=== PATIENT | female | born 1965 | race Caucasian/White ===

== ENCOUNTER 2020-11-28 08:57 | Emergency (ER) | payer BC, OTHER, SELFPAY ==
--- NOTE | 2020-11-28 08:57 | XR_ITS ---
WS: [id number] PORTABLE CHEST HISTORY: dyspnea/cough COMPARISON: None available. Dense consolidation in the LEFT upper lung field with adjacent pleural thickening. RIGHT lung is stewart r. There is slight atelectasis at the LEFT costophrenic angle. Cardiac size: Normal. Mediastinum/Aorta: Mild atherosclerosis aorta. No osseous abnormality seen. XR/XR chest 1V portable [id number] IMPRESSION: 1. LEFT upper lobe consolidation consistent with pneumonia. Recommend follow-u p radiograph after treatment to ensure resolution. 2. Minimal atelectasis at the LEFT costophrenic angle.
--- NOTE | 2020-11-28 08:58 | ECG_ITS ---
[facility] Test Date: 2020-11-28 Pat Name: Lisa Hammer Department: Room: Gender: Female Line Crewman: : 1965 Requested By: Henry Bentley Order Number: [id number] Reading MD: VANNESA WYNN Measurements Intervals [place] Rate: 87 P: 56 WV: 134 QRS: -31 QRSD: 94 T: 38 QT: 343 QTc: 414 Interpretive Statements SINUS RHYTHM MARKED LEFT AXIS DEVIATION [QRS AXIS < -30] INCOMPLETE RIGHT BUNDLE BRANCH BLOCK [90+ ms QRS DURATION, TERMINAL R IN V1/V2, 40+ ms S IN I/aVL/V4/V5/V6] No previous ECG available for comparison Electronically Signed On 11-28-2020 18:40:12 CDT by VANNESA WYNN [id number]
[2020-11-28 09:07] VITALS: BP 145/75; PULSE 91; RESP 18; TEMP 36.9; O2SAT 95; BMI 31.7
--- NOTE | 2020-11-28 09:26 | ED_ITS ---
HPI - Chest Pain General: Chief Complaint: Chest Pain Stated Complaint: CP Time Seen by Provider: 11/28/20 08:57 History of Present Illness: HPI narrative: 55-year-old female presents emergency room complaining chest pain started yesterday. Woke her up last ni ght. She has a family history her mother had early coronary artery disease she is very concerned about that she has no history of DVTs pain is reproduced with palpation across chest. When she was seen yesterday by her primary care she was found to have hematuria and was scheduled for a CT to evaluate today. Most of her pain is on the left flank prior to the test may be getting today. Does not radiate into her neck or arms. She does states worse when she takes a deep breath as well. MD complaint: chest pain Onset (ago): hour(s) Timing of current episode: constant Onset: during rest Pain location: left chest Pain radiation: back and left shoulder Severity: severe Quality: sharp Relieving factors: nothing Exacerbating factors: inspiration and palpation Context: recent illness Associated symptoms: Deny abdominal pain, diaphoresis, dyspnea, fever(s), leg edema, nausea, palpitations, sense of impending doom, syncope or vomiting Review of Systems Const: Denies: fever(s) or diaphoresis ENMT: Denies: throat pain, ear or mastoid pain, nasal discharge or nasal congestion Card: Denies: palpitations or syncope Resp: Denies: dyspnea GI: Denies: abdominal pain, nausea or vomiting : Denies: flank pain, difficulty voiding, dysuria, urinary frequency or urinary urgency Skin/Breast: Denies: rash or pruritus PFSH ED PFSH: Medical History Hypertension Family History Mother Heart attack Social History Smoking and tobacco status: never smoked Alcohol intake: never Physical Exam Const: COMMON NORMALS: no acute distress GENERAL APPEARANCE: cooperative and comfortable ORIENTATION/CONSCIOUSNESS: Yes awake, Yes oriented to person, Yes oriented to place and Yes oriented to time HENMT: COMMON NORMALS: normocephalic, atraumatic and hearing grossly normal bilaterally HEAD & SCALP: normocephalic and atraumatic Neck/C-Spine: COMMON NORMALS: no JVD Resp: COMMON NORMALS: normal respiratory effort, No retractions and No use of accessory muscles AUSCULTATION: rhonchi left upper Cardio: COMMON NORMALS: no JVD, regular rate, regular rhythm and No murmurs present (Cardio) RATE: regular rate RHYTHM: regular rhythm GI: COMMON NORMALS: Soft to palpation and No hepatosplenomegaly present AUSCULTATION: Yes normoactive bowel sounds PALPATION: Yes Soft to palpation, No Tenderness to palpation present (GI), No Guarding due to palpation present (GI) and Yes No hepatosplenomegaly present Extremity: COMMON NORMALS: normal to inspection, capillary refill normal, no clubbing, cyanosis or edema, no calf tenderness and no pedal edema Neuro: SENSORIUM/ORIENTATION: Yes oriented to person, Yes oriented to place and Yes oriented to time Skin: COMMON NORMALS: no rashes or lesions noted GENERAL SKIN EXAM: no jorge luis hes or lesions noted Course Vital Signs: Vital signs: Vital Signs Temperature 98.4 F 11/28/20 09:07 Pulse Rate 87 11/28/20 11:22 Respiratory Rate 16 11/28/20 11:22 Blood Pressure 142/71 11/28/20 11:22 Pulse Oximetry 99 11/28/20 11:22 MDM - Chest Pain MDM Narrative: Medical decision making narrative: Left upper lobe pneumonia confirmed on CT there is an elevated D-dimer but no PE white count is elevated but she tells me her white count was checked yesterday was also 20,000 range. She is maintaining her sats well. She does have quite a bit of blood in her urine on CT we got a little bit of the kidney she does not have a kidney stone like pain I suspect she may have little pyelonephritis based on some stranding worsening on the CT and her description of symptoms she had early on at this point I think she can continue with his the ciprofloxacin will add Zithromax and have her follow-up later this week with her primary care doctor additionally strongly encouraged her to use to follow-up in 4 to [address] of the chest as per recommendation of the radiologist based on the findings today. She has any worsening or change symptoms she should return. Lab Data: Labs: Lab Results 11/28/20 11/28/20 11/28/20 Range/Units 09:23 09:23 09:23 WBC 20.2 H (4.0-10.0) 10^3/ uL RBC 4.18 (4.1-5.3) 10^6/u L Hgb 11.5 (11.5-15.3) g/dL Hct 35.1 L (37.0-47.0) % MCV 84.0 (81-99) fL MCH 27.5 L (28.0-34.0) pg MCHC 32.8 (30.0-36.0) g/dL RDW 14.3 (12.1-15.1) % Plt Count 420 H (130-400) 10^3/c mm MPV 9.5 (7.4-10.4) fL Neut % (Auto) 84.8 % Lymph % (Auto) 7.4 % [place] % (Auto) 6.9 % Eos % (Auto) 0.1 % Baso % (Auto) 0.3 % Neut # (Auto) 17.11 H (1.8-7.7) 10^3/u L Lymph # (Auto) 1.5 (0.8-4.8) 10^3/u L [place] # (Auto) 1.4 H (0.2-0.9) 10^3/u L Eos # (Auto) 0.0 (0.0-0.8) 10^3/u L Baso # (Auto) 0.1 (0.0-0.1) 10^3/u L Nucleated RBC % (a uto) 0 % Nucleated RBCs # 0.0 /100WBC D-Dimer (0-0.59) ug/mIFE U Sodium 131 L (136-145) mmol/L Potassium 3.5 (3.5-5.1) mmol/L Chloride 99 (98-107) mmol/L Carbon Dioxide 18 L (22-29) mmol/L Anion Gap 17.5 (5-19) BUN 11 (6-20) mg/dL Creatinine 0.8 (0.5-0.9) mg/dL GFR Calculation 74.2 L (90-130) mL/min Glucose 114 (65-115) mg/dL Calculated Osmolal ity 272 L (285-295) mOsm/k g Calcium 8.7 (8.5-10.5) mg/dL Total Bilirubin 0.3 (0.15-1.2) mg/dL AST 17 (0-32) U/L ALT 15 (0-33) U/L Alkaline Phosphata se 89 (35-105) IU/L Troponin T Baselin e 31 H (0-10) ng/L Total Protein 7.4 (6.6-8.7) g/dL Albumin 3.8 (3.5-5.2) g/dL Globulin 3.6 (1.3-4.6) g/dL Urine Color (Yellow) Urine Appearance (CLEAR) Urine pH (5-7) Ur Specific Gravit y (1.005-1.030) Urine Protein (Negative) Urine Glucose (UA) (Normal) Urine Ketones (Negative) Urine Blood (Negative) Urine Nitrate (Negative) Urine Bilirubin (Negative) Urine Urobilinogen (Negative) mg/dL Ur Leukocyte Staci ase (Negative) Urine RBC (0-2) /hpf Urine WBC (0-5) /hpf Ur Squamous Epith Cells (0-5) /hpf Amorphous Sediment Urine Bacteria (NONE) /hpf Urine Mucus /hpf 11/28/20 11/28/20 Range/Units 09:28 10:13 WBC (4.0-10.0) 10^3/ uL RBC (4.1-5.3) 10^6/u L Hgb (11.5-15.3) g/dL Hct (37.0-47.0) % MCV (81-99) fL MCH (28.0-34.0) pg MCHC (30.0-36.0) g/dL RDW (12.1-15.1) % Plt Count (130-400) 10^3/c mm MPV (7.4-10.4) fL Neut % (Auto) % Lymph % (Auto) % [place] % (Auto) % Eos % (Auto) % Baso % (Auto) % Neut # (Auto) (1.8-7.7) 10^3/u L Lymph # (Auto) (0.8-4.8) 10^3/u L [place] # (Auto) (0.2-0.9) 10^3/u L Eos # (Auto) (0.0-0.8) 10^3/u L Baso # (Auto) (0.0-0.1) 10^3/u L Nucleated RBC % (a uto) % Nucleated RBCs # /100WBC D-Dimer 3.25 H (0-0.59) ug/mIFE U Sodium (136-145) mmol/L Potassium (3.5-5.1) mmol/L Chloride (98-107) mmol/L Carbon Dioxide (22-29) mmol/L Anion Gap (5-19) BUN (6-20) mg/dL Creatinine (0.5-0.9) mg/dL GFR Calculation (90-130) mL/min Glucose (65-115) mg/dL Calculated Osmolal ity (285-295) mOsm/k g Calcium (8.5-10.5) mg/dL Total Bilirubin (0.15-1.2) mg/dL AST (0-32) U/L ALT (0-33) U/L Alkaline Phosphata se (35-105) IU/L Troponin T Baselin e (0-10) ng/L Total Protein (6.6-8.7) g/dL Albumin (3.5-5.2) g/dL Globulin (1.3-4.6) g/dL Urine Color Yellow (Yellow) Urine Appearance Clear (CLEAR) Urine pH 7 (5-7) Ur Specific Gravit y 1.010 (1.005-1.030) Urine Protein 1+ H (Negative) Urine Glucose (UA) Norm (Normal) Urine Ketones 2+ H (Negative) Urine Blood 3+ H (Negative) Urine Nitrate Negative (Negative) Urine Bilirubin 1+ H (Negative) Urine Urobilinogen 8 H (Negative) mg/dL Ur Leukocyte Staci ase Negative (Negative) Urine RBC >100 H (0-2) /hpf Urine WBC None (0-5) /hpf Ur Squamous Epith Cells 10-15 H (0-5) /hpf Amorphous Sediment Not Reportable Urine Bacteria 1+ H (NONE) /hpf Urine Mucus Trace /hpf Discharge Plan Discharge Patient Disposition: Home Clinical Impression: Pneumonia, Pyelonephritis Condition: Stable Prescriptions: New Zithromax Z-Ty 250 mg tablet See Rx Instructions .ROUTE .COMPLEX Qty: 6 RF: 0 hydrocodone-acetaminophen 5-325 mg tablet 1 tab PO Q6H PRN (Reason: pain) Qty: 12 RF: 0 No Action escitalopram oxalate 10 mg tablet 10 mg PO QAM RF: 0 losartan 100 mg tablet 100 mg PO QAM RF: 0 vitamin E 200 unit capsule 400 unit PO QAM RF: 0 aspirin 81 mg tablet,delayed release (DR/EC) 81 mg PO QAM RF: 0 multivitamin Tablet 1 tab PO DAILY RF: 0 Vitamin B-12 1,000 mcg Tablet Extended Release 1,000 mcg PO QAM RF: 0 ondansetron HCl 4 mg tablet 4 mg PO QID PRN (Reason: Nausea And Vomiting) RF: 0 fexofenadine 180 mg Tablet 180 mg PO QAM RF: 0 ciprofloxacin HCl 500 mg tablet 500 mg PO BID RF: 0 Synthroid 112 mcg tablet 112 mcg PO QAM RF: 0 Vitamin D3 125 mcg (5,000 unit) Tablet 125 mcg PO DAILY RF: 0 cranberry 1 tab PO QAM RF: 0 Discharge Orders: Discharge ED (Routine); Ordered 11/28/20 Ordered By: Henry Issa Discharge Diet: Usual diet Discharge Activity: Increase activity as tolerated Patient Instructions: Opioid Safety Activity Restrictions/Additional Instructions: Recommend you follow-up with your primary care doctor in the next 2 to 3 days prior to the weekend to reevaluate. Start the second antibiotic you were given today, continue the antibiotic given to you by your primary care provider yesterday. It is very important that you have a follow-up CT in approximately 4 to 6 weeks. This can be arranged through your primary care provider. Coding Level of Care Code ED Dry Plasterer for Anson Monzon
[2020-11-28 09:29] LABS: Basophils # 0.1 10^3/uL (0.0-0.1); Basophils % 0.3 %; Eosinophils % 0.1 %; Hematocrit 35.1 % (37.0-47.0); Hemoglobin 11.5 g/dL (11.5-15.3); Lymphocytes # 1.5 10^3/uL (0.8-4.8); Lymphocytes % 7.4 %; Mean Corpuscular HGB Conc 32.8 g/dL (30.0-36.0); Mean Corpuscular Hemoglobin 27.5 pg (28.0-34.0); Mean Platelet Volume 9.5 fL (7.4-10.4); Monocytes # 1.4 10^3/uL (0.2-0.9); Monocytes % 6.9 %; Neutrophils # 17.11 10^3/uL (1.8-7.7); Neutrophils % 84.8 %; Nucleated Red Blood Cells % 0 %; Platelet Count 420 10^3/cmm (130-400); Red Blood Count 4.18 10^6/uL (4.1-5.3); Red Cell Distribution Width 14.3 % (12.1-15.1); White Blood Count 20.2 10^3/uL (4.0-10.0)
[2020-11-28 09:50] LABS: Alanine Aminotransferase 15 U/L (0-33); Albumin Level 3.8 g/dL (3.5-5.2); Alkaline Phosphatase 89 IU/L (35-105); Anion Gap 17.5 (5-19); Aspartate Amino Transferase 17 U/L (0-32); Blood Urea Nitrogen 11 mg/dL (6-20); Calcium 8.7 mg/dL (8.5-10.5); Carbon Dioxide 18 mmol/L (22-29); Chloride 99 mmol/L (98-107); Globulin 3.6 g/dL (1.3-4.6); Glomerular Filtration Rate 74.2 mL/min (90-130); Glucose 114 mg/dL (65-115); Osmolality Calculated 272 mOsm/kg (285-295); Potassium 3.5 mmol/L (3.5-5.1); Sodium 131 mmol/L (136-145); Total Bilirubin 0.3 mg/dL (0.15-1.2); Total Protein 7.4 g/dL (6.6-8.7); Troponin(5th) Baseline 31 ng/L (0-10)
[2020-11-28 09:55] LABS: D Dimer 3.25 ug/mIFEU (0-0.59)
--- NOTE | 2020-11-28 09:57 | CT_ITS ---
WS: [id number] CT CHEST ANGIOGRAPHY WITH REFORMATS HISTORY: elevated d dimer TECHNIQUE: Contiguous axial images are obtained through the chest during arterial injection of intrav enous contrast. Images are reconstructed to evaluate the pulmonary arteries. MIP imaging also reviewe d. All CT scans at [facility] use at least one of these dose optimization techniques: aut omated exposure control; mA and/or kV adjustment per patient size (includes targeted exams where dose is matched to clinical indication); or iterative reconstruction. CONTRAST: Omnipaque 350; 95 mL IV. DLP: 527.12 mGy.cm COMPARISON: None available. Good opacification of the pulmonary arteries. No pulmonary embolism. Mild enlargement of the pulmonar y artery. Mild atherosclerosis aorta with no aneurysm. Mild enlargement of the LEFT heart chambers. N o RIGHT heart strain. Dense area of consolidation in the LEFT upper lobe abuts the superior fissure. This consolidation mariela sures 6.8 x 6.0 cm. Adjacent changes of pneumonitis. Subsolid nodule abuts the pleura in the RIGHT mi ddle lobe, image 32 of series 3 measuring 4 mm. Small LEFT pleural effusion. Numerous but small bilateral axillary lymph nodes measuring up to 9 mm. There are numerous mediastina l and hilar lymph nodes. Perirectal lymph node measures 10 mm in short axis diameter. There are numer ous lymph nodes extending along the pulmonary artery to the LEFT hilum. Lymph nodes have maximum diam eter of 8 mm. Subcarinal lymph node with a maximum diameter of 14 mm. Bilateral hilar lymph nodes mariela suring up to 15 mm. Early arterial enhancement of the liver is negative for visualized mass. Gallbladder surgically remov ed. No adrenal mass. Mild perinephric stranding around the superior pole of the LEFT kidney. Low-atte nuation of the pancreatic head without enlargement. Lesions in the pancreas, liver and kidneys would be difficult to visualize due to the early phase enhancement. There are a few subcentimeter lymph nod es near the celiac axis. 7 mm distal esophageal lymph node. Stranding and mild inflammatory changes i n the mediastinal fat. Small hiatal hernia. No osteoblastic or osteolytic bone disease. CT/CT angio chest PE protcl [id number] IMPRESSION: 1. No pulmonary embolism. 2. Large area of consolidation in the LEFT upper lobe extending along the fiss ure. Differential includes pneumonia and neoplasm. Recommend short-term follow- up after treatment for pneumonia. Recommend follow-up chest and abdomen CT with IV contrast in 2-3 weeks. 3. Small LEFT pleural effusion. 4. There are numerous axillary, mediastinal and hilar lymph nodes which may al l be reactive. 5. Mild stranding around the upper pole the LEFT kidney. Correlate for possibl e urinary tract infection. 6. There is an additional area slight change in density in the pancreatic head although no enlargement. Recommend follow-up evaluation through the abdomen to include the pancreas and LEFT kidney on the CT to be obtained in 2-3 weeks.
[2020-11-28 10:11] VITALS: RESP 18
[2020-11-28] MEDS: morphine 4 mg/mL SDV 1 mL IVP (10:11)
[2020-11-28] MEDS: iohexol 350 mg/mL 100 mL Btl IV (10:23)
[2020-11-28 10:40] LABS: Urine Appearance Clear (CLEAR); Urine Color Yellow (Yellow); pH Urine 7 (5-7)
[2020-11-28 10:41] LABS: Add Urine Culture? No; Add Urine Microscopic? YES; Bacteria Urine 1+ /hpf; Bilirubin Urine 1+ (Negative); Blood Urine 3+ (Negative); Glucose Urine UA Norm (Normal); Ketones Urine 2+ (Negative); Leukocyte Esterase Urine Negative (Negative); Mucus Urine TRACE /hpf; Nitrate Urine Negative (Negative); Protein Urine 1+ (Negative); RBC Urine >100 /hpf (0-2); Urobilinogen Urine 8 mg/dL (Negative)
[2020-11-28 11:22] VITALS: BP 142/71; PULSE 87; RESP 16; O2SAT 99
== END 2020-11-28 11:24 | disposition home or self-care (01) ==
PROVIDERS: Emergency Provider Family Medicine
DX: J18.9 Pneumonia, unspecified organism (principal); N12 Tubulo-interstitial nephritis, not specified as acute or chronic; Z79.82 Long term (current) use of aspirin; I10 Essential (primary) hypertension
CPT/HCPCS: 71045; 71275; 80053; 81001; 84484; 85025; 85378; 93005; 96374; 99284; J2270; Q9967

== ENCOUNTER 2020-12-01 07:48 | Outpatient (CLI) | payer OTHER, BC, SELFPAY ==
--- NOTE | 2020-12-01 | CT_ITS ---
WS: [id number] CT ABDOMEN PELVIS TECHNIQUE: Noncontrast CT of the abdomen and pelvis with coronal and sagittal reformatted images. CLINICAL INFORMATION: HEMATURIA COMPARISON: CTA November 28, 2020 DLP: [address] scans at [facility] use at least one of these dose optimization techniques: automat ed exposure control; mA and/or kV adjustment per patient size (includes targeted exams where dose is matched to clinical indication); or iterative reconstruction. FINDINGS: Small left pleural effusion. Slight right basilar atelectasis. Subsegmental atelectasis in the lingul a and left lower lobe. Pleural effusion is similar in appearance to the recent CT. Noncontrast liver is normal. Small esophageal hiatal hernia. Cholecystectomy clips. Noncontrast splee n is normal. Adrenal glands are normal. Heterogeneous attenuation pancreatic head with slight fullnes s is similar in appearance to the recent CT. This is not well evaluated on this noncontrast CT and re commend further evaluation with contrast-enhanced CT abdomen pelvis or MRI pancreas. Small fatty lesion right renal parenchyma consistent with renal angiomyolipoma measuring 6.9 mm. Righ t lower pole exophytic renal lesion with increased attenuation measuring 1.6 cm is not definitely cys tic and recommend further evaluation with renal ultrasound. Perinephric stranding and edema about the left kidney. This is similar in appearance [address] No hydronephrosis. No obstructing left renal or ureteral calculi. Shotty lymph nodes in the upper abdomen. Shotty periaortic and retroperitoneal lymph nodes. Largest l ymph node measures 8 mm along the left retroperitoneum. These are nonspecific but most likely reactiv e. Sigmoid diverticulosis. No evidence of acute diverticulitis. No evidence of small or large bowel obstruction. Disc space narrowing worse at L3-4. CT/CT kidney stone [id number] IMPRESSION: 1. Lobulated kidney left upper pole with perinephric inflammatory stranding ca n be seen with renal insufficiency. No obstructing renal or ureteral calculi. N o hydronephrosis in either kidney. 2. Nonspecific exophytic increased attenuation lesion lower pole right kidney measuring 1.6 cm not definitely cystic. Recommend further evaluation with renal ultrasound. 3. Heterogeneous fullness in the pancreatic head unchanged from the CTA chest. No discrete lesions visualized although not well evaluated on this noncontrast study. Recommend further evaluation with contrast-enhanced CT abdomen pelvis o r MRI of the pancreas without and with gadolinium enhancement to exclude underl talha lesion. 4. Stable small left pleural effusion. 5. Small esophageal hiatal hernia.
== END 2020-12-01 07:49 | disposition home or self-care (01) ==
PROVIDERS: PCP Physician Assistant; Visit Provider Physician Assistant
DX: R31.9 Hematuria, unspecified (principal); K44.9 Diaphragmatic hernia without obstruction or gangrene; J90 Pleural effusion, not elsewhere classified
CPT/HCPCS: 74176

== ENCOUNTER 2020-12-04 10:15 | Outpatient (CLI) | payer OTHER, SELFPAY ==
[2020-12-04 11:03] LABS: Add Urine Microscopic? YES; Bilirubin Urine Neg (Negative); Blood Urine 2+ (Negative); Glucose Urine UA Norm (Normal); Ketones Urine Negative (Negative); Leukocyte Esterase Urine Negative (Negative); Nitrate Urine Negative (Negative); Protein Urine Neg (Negative); Urine Appearance SL Hazy (CLEAR); Urine Color Yellow (Yellow); Urobilinogen Urine Norm (Negative); pH Urine 6 (5-7)
[2020-12-04 11:04] LABS: Bacteria Urine 2+ /hpf; Mucus Urine 1+ /hpf; Squamous Epithelial Cell Urine 15-25 /hpf (0-5); WBC Urine 0-4 /hpf (0-5)
[2020-12-04 11:06] LABS: Add Urine Culture? No; Hyaline Casts Urine RARE /lpf
[2020-12-04 11:07] LABS: Urine Creatinine 269 mg/dL (28-217)
[2020-12-04 11:09] LABS: Urine Protein Random 41 mg/dL
== END 2020-12-04 10:16 | disposition home or self-care (01) ==
PROVIDERS: PCP Physician Assistant; Visit Provider Internal Medicine Pulmonary Disease
DX: R80.9 Proteinuria, unspecified (principal)
CPT/HCPCS: 81001; 82570; 84156

== ENCOUNTER 2020-12-28 07:57 | Outpatient (CLI) | payer OTHER, SELFPAY ==
--- NOTE | 2020-12-28 08:07 | CTR_ITS ---
PROCEDURE INFORMATION: Exam: CT Chest With Contrast; Diagnostic Exam date and time: 12/28/2020 8:07 AM Age: 55 years old Clinical indication: Condition or disease; Other: Lung consolidation, hematuria; Lung condition and disease; Pneumonia; Prior surgery; Surgery type: Gb TECHNIQUE: Imaging protocol: Diagnostic computed tomography of the chest with contrast. Radiation optimization: All CT scans at this facility use at least one of these dose optimization techniques: automated exposure control; mA and/or kV adjustment per patient size (includes targeted exams where dose is matched to clinical indication); or iterative reconstruction. Contrast material: OMNI 300; Contrast volume: 95 ml; Contrast route: INTRAVENOUS (IV); COMPARISON: CT angio chest PE protcl [id number] 11/28/2020 10:13 AM RADIATION DOSE METRICS: Total DLP (mGy-cm): 2108.78 FINDINGS: Lungs: No consolidation. Pleural spaces: There is a small left pleural effusion with adjacent atelectasis. Heart: Unremarkable. No cardiomegaly. No pericardial effusion. Mediastinal space: A small hiatal hernia is present. Aorta: Unremarkable. No aortic aneurysm. Lymph nodes: Interval decrease in size of mediastinal lymph nodes, the largest in the subcarinal region measuring 1.6 cm (previously 1.7 cm). Unchanged small bilateral axillary lymph nodes, the largest on the left measuring 0.9 cm in transverse dimension. Bones/joints: Degenerative changes of the spine seen. Soft tissues: Unremarkable. IMPRESSION: 1. Small left pleural effusion with adjacent atelectasis. 2. Interval decrease in size of mediastinal lymph nodes. PROCEDURE INFORMATION: Exam: CT Abdomen With Contrast Exam date and time: 12/28/2020 8:07 AM Age: 55 years old Clinical indication: Condition or disease; Other: Lung consolidation, hematuria; Lung condition and disease; Pneumonia; Prior surgery; Surgery type: Gb TECHNIQUE: Imaging protocol: Computed tomography images of the abdomen with intravenous contrast. Radiation optimization: All CT scans at this facility use at least one of these dose optimization techniques: automated exposure control; mA and/or kV adjustment per patient size (includes targeted exams where dose is matched to clinical indication); or iterative reconstruction. Contrast material: OMNI 300; Contrast volume: 95 ml; Contrast route: INTRAVENOUS (IV); COMPARISON: CT angio chest PE protcl [id number] 11/28/2020 10:13 AM RADIATION DOSE METRICS: Total DLP (mGy-cm): 2108.78 FINDINGS: Liver: Normal. No mass. Gallbladder and bile ducts: The gallbladder has been surgically removed. Pancreas: Normal. No ductal dilation. Spleen: Normal. No splenomegaly. Adrenals: Normal. No mass. Kidneys and ureters: Symmetric enhancement of the kidneys. A complex hyperdense cyst measuring 1.9 cm is again seen in the right lower kidney, likely containing proteinaceous/hemorrhagic products. Unchanged angiomyolipoma in the right mid kidney measuring 1.1 cm. No hydronephrosis or nephrolithiasis. Stomach and bowel: Visualized stomach and bowel are unremarkable. No obstruction. No mucosal thickening. Intraperitoneal space: Unremarkable. No free air. No significant fluid collection. Lymph nodes: Small retroperitoneal lymph nodes noted, the largest measuring 1.0 cm in transverse dimension on the left. Vasculature: Unremarkable. No abdominal aortic aneurysm. Bones/joints: Degenerative changes of the spine seen. Soft tissues: Unremarkable. CT/CT chest abdomen w con* IMPRESSION: Small right kidney angiomyolipoma. No nephrolithiasis. COMMENTS: Consistent with the [employer]'s Incidental Findings Committee white paper (J Am [place] Radiol 2018): Any incidental renal lesion less than 1 cm or classified as too small to characterize, or any incidental cystic renal lesion characterized as simple-appearing, is likely benign. No follow-up imaging is recommended for these lesions per consensus recommendations based on imaging criteria. Radiation Dose CTDIVOL = (mGy): DLP = 2108.78~2108.78 (mGy-cm)
[2020-12-28] MEDS: iohexol 300 mg/mL 50 mL Btl PO (08:47)
[2020-12-28] MEDS: iohexol 300 mg/mL 100 mL Btl IV (09:02)
== END 2020-12-28 07:58 | disposition home or self-care (01) ==
LOC: RADWPI 08:00
PROVIDERS: PCP Physician Assistant; Visit Provider Physician Assistant
DX: J18.1 Lobar pneumonia, unspecified organism (principal); J90 Pleural effusion, not elsewhere classified; D17.71 Benign lipomatous neoplasm of kidney
CPT/HCPCS: 71260; 74160; Q9967

== ENCOUNTER 2021-01-23 09:51 | Outpatient (CLI) | payer OTHER, SELFPAY ==
[2021-01-23 10:10] VITALS: BP 150/89; PULSE 85; RESP 16; TEMP 36.8; O2SAT 97; BMI 31.9
[2021-01-23 10:35] VITALS: BP 149/85; PULSE 82; RESP 18; O2SAT 94
[2021-01-23 11:32] VITALS: BP 150/81; PULSE 76; RESP 16; TEMP 37; O2SAT 97
--- NOTE | 2021-02-02 11:21 | DCPLANNER ---
industrial sales manager had message that patient received the monoclonal antibody infusion. industrial sales manager called and spoke with patient. She stated that before the infusion, she had a headache, she had diarrhea. Patient stated that she did not run a fever, she did have a slight cough. Patient stated that after the infusion, she feels fantastic. Patient stated that she had a little bit of a fever after the infusion, but has really not had any symptoms, she is feeling great.
== END 2021-01-23 09:52 | disposition home or self-care (01) ==
LOC: OPS 09:54
PROVIDERS: PCP Physician Assistant; Visit Provider Nurse Practitioner
DX: U07.1 COVID-19 (principal)
CPT/HCPCS: 96365

== ENCOUNTER → 2021-02-26 10:31 | Outpatient (BNVA) | payer OTHER, SELFPAY | PROVIDERS: PCP Physician Assistant; Visit Provider Internal Medicine Rheumatology | DX: R76.8 Other specified abnormal immunological findings in serum (principal); Z87.891 Personal history of nicotine dependence; Z71.89 Other specified counseling | CPT/HCPCS: 99203 ==

== ENCOUNTER 2021-03-08 10:15 | Outpatient (CLI) | payer OTHER, SELFPAY ==
--- NOTE | 2021-03-08 10:19 | MM_ITS ---
WS: [id number] BILATERAL DIGITAL SCREENING MAMMOGRAPHY WITH CAD CLINICAL INFORMATION: SCREENING HISTORY: Screening mammogram. No current complaints. COMPARISON: None. TECHNIQUE: Bilateral CC and MLO views. FINDINGS: The breasts are composed of heterogeneous fibroglandular density tissue, which can limit the detectio n of small underlying mass lesions. Punctate and lucent centered calcifications. No suspicious mass, asymmetry, calcifications, or architectural distortion. No evidence of malignancy. MM/[place] [id number] IMPRESSION: BI-RADS: 2-Benign FOLLOW UP: 1 Year Follow-up Recommend return to annual screening mammography.
== END 2021-03-08 10:16 | disposition home or self-care (01) ==
LOC: RADSHAW 10:18
PROVIDERS: PCP Physician Assistant; Visit Provider Physician Assistant
DX: Z12.31 Encounter for screening mammogram for malignant neoplasm of breast (principal)
CPT/HCPCS: 77067

== ENCOUNTER 2022-03-27 13:38 | Outpatient (CLI) | payer MEDICAID, SELFPAY ==
--- NOTE | 2022-03-27 13:53 | MM_ITS ---
WS: [id number] Bilateral screening 3D tomosynthesis digital mammogram, 03/27/2022 Clinical Data: SCREEN Comparison: 03/08/2021. Findings: The breast parenchymal pattern shows heterogeneous density. No spiculated masses or clustered calcifi cations are seen. There are no secondary signs of carcinoma. Mole markers are on both breasts. There are numerous left axillary lymph nodes. MM/[id number] Impression: 1. Negative bilateral mammogram unchanged. 2. Recommend annual screening mammograms. BIRADS: 1-Negative FOLLOW UP: 1 Year Follow-up The CAD fish checker was used.
== END 2022-03-27 13:39 | disposition home or self-care (01) ==
LOC: RAD 13:38
PROVIDERS: PCP Physician Assistant; Visit Provider Physician Assistant
DX: Z12.31 Encounter for screening mammogram for malignant neoplasm of breast (principal)
CPT/HCPCS: 77063; 77067

== ENCOUNTER 2022-04-14 06:53 | Emergency (ER) | payer MEDICAID, SELFPAY ==
[2022-04-14] VITALS (7 sets, daily range): BP systolic 124–139; BP diastolic 78–85; PULSE 76–82; RESP 12–18; O2SAT 95–99; BMI 31.6
--- NOTE | 2022-04-14 06:58 | ECG_ITS ---
[facility] Test Date: 2022-04-14 Pat Name: Lisa Hammer Department: Room: Gender: Female Medication Assistant: : 1965 Requested By: Kory Thorne Order Number: [id number] Rosa MD: Nessa Goodwin M.D. Measurements Intervals [place] Rate: 82 P: 47 HI: 139 QRS: -18 QRSD: 91 T: 4 QT: 375 QTc: 438 Interpretive Statements SINUS RHYTHM Compared to ECG 11/28/2020 09:14:34 Left-axis deviation no longer present Incomplete right bundle-branch block no longer present Electronically Signed On 04-14-2022 9:42:15 GREIGE GOODS MARKER by Nessa Goodwin M.D. [email or web address] [email or web address] [email or web address]/[id number] f
--- NOTE | 2022-04-14 06:58 | XRR_ITS ---
PROCEDURE INFORMATION: Exam: XR Chest Exam date and time: 04/14/2022 8:34 AM Age: 56 years old Clinical indication: Chest pain/pressure. TECHNIQUE: Imaging protocol: Radiologic exam of the chest. Views: 1 view. COMPARISON: CT chest abdomen w con* 12/28/2020 8:59 AM FINDINGS: Lungs: Ovoid opacity at the left base measuring 4.5 x 2.1 cm. This could reflect a mass or consolidation. There is mild patchy adjacent opacity. Pleural spaces: No pleural effusion. No pneumothorax. Heart/Mediastinum: The cardiac silhouette is approximately unchanged. No gross evidence of pneumomediastinum. Bones/joints: No gross fracture. XR/XR chest 1V portable [id number] IMPRESSION: Large ovoid opacity at the left base that could reflect a mass or consolidation. There is mild patchy adjacent opacity. Recommend CT chest with contrast to further assess.
--- NOTE | 2022-04-14 07:00 | W.ED.CHESTPA ---
HPI - Chest Pain General: Chief Complaint: Chest Pain Stated Complaint: CHEST PAIN Time Seen by Provider: 04/14/22 06:58 History of Present Illness: 56-year-old female presents with some mid left-sided chest pain that awoke her from sleep around 430 this morning. She reports that the pain went to her left arm and she had some tingling and the pain radiated up into her jaw. She felt like she had a hard time catching her breath. She reports no previous cardiac history but does report a strong family history of cardiac problems. Patient called EMS around 15-12 06. EMS reports that she was placed on oxygen got some mild improvement. Then she was then given aspirin 3 nitros with minimal improvement. Patient received 100 fentanyl and pain is down no A1. She reports that she felt like she had a hard time taking her catching her breath. She denies any pain on inspiration, she denies fever, chills, cough. Associated symptoms: Reports dyspnea; Deny abdominal pain, fever(s), nausea, palpitations, syncope or vomiting Review of Systems Const: Reports: fatigue and malaise; Denies: fever(s) or chills Eyes: Denies: change in vision, blurry vision or eye discharge ENMT: Denies: throat pain or tinnitus Card: Reports: chest pain; Denies: palpitations, swelling of feet/ankles, lightheadedness or syncope Resp: Reports: dyspnea; Denies: productive cough, wheezing or pain on inspiration GI: Denies: abdominal pain, nausea, vomiting or diarrhea : Denies: flank pain or difficulty voiding Musc: Reports: neck pain and extremity pain Skin/Breast: Denies: rash or erythema Neuro: Denies: headache(s) or dizziness Psych: Denies: anxiety or depression PFS ED PFSH: Medical History Hypertension Family History Mother Heart attack Social History Smoking and tobacco status: former smoker Quit status (tobacco): has quit using tobacco Year quit tobacco: 2016 <[id number] Second hand smoke exposure: No Smoking risk assessment/counseling performed?: Yes Alcohol intake: never Lives independently: Yes Household members: none Marital status: / service: No Current occupational status: employed Pets and animals: No History of recent travel: No Current gender identity: Female Physical Exam Const: COMMON NORMALS: no acute distress, average body habitus, patient oriented x3 and alert HENMT: COMMON NORMALS: hearing grossly normal bilaterally and moist oral mucous membranes Eye: COMMON NORMALS: Equal, round and reactive pupils present and EOMs intact bilaterally PUPIL: Yes Equal, round and reactive pupils present Resp: COMMON NORMALS: normal respiratory effort, No retractions, No use of accessory muscles and clear to auscultation bilaterally AUSCULTATION: clear to auscultation bilaterally Cardio: COMMON NORMALS: regular rate and regular rhythm RATE: regular rate RHYTHM: regular rhythm GI: COMMON NORMALS: Normal to inspection, nondistended, normoactive bowel sounds present, Soft to palpation and non-tender PALPATION: Yes Soft to palpation : COMMON NORMALS: Yes no CVA tenderness BLADDER/KIDNEY EXAM: Yes no CVA tenderness Back/Pelvis: COMMON NORMALS: no CVA tenderness Extremity: COMMON NORMALS: normal to inspection, full ROM and capillary refill normal Neuro: COMMON NORMALS: patient oriented x3, moves all extremities, no focal motor deficits and no sensory deficits noted SENSORIUM/ORIENTATION: Yes alert Psych: COMMON NORMALS: mental status grossly normal, Normal thought process present, cooperative and normal affect THOUGHT PROCESS: Normal thought process present Skin: COMMON NORMALS: no rashes or lesions noted and no wounds GENERAL SKIN EXAM: no rashes or lesions noted Course Vital Signs: Vital signs: Vital Signs Pulse Rate 76 04/14/22 10:25 Respiratory Rate 14 04/14/22 10:00 Blood Pressure 124/78 04/14/22 10:25 Pulse Oximetry 97 04/14/22 10:25 Oxygen Delivery Me thod 04/14/22 06:57 MDM - Chest Pain Medical Decision Making Patient's symptoms likely due to infectious bronchitis with some chronic underlying respiratory disease. Patient to be treated with antibiotic, steroid. Recommend that she use ibuprofen for discomfort. She follows up with her primary care provider in a couple days for recheck of her symptoms. Patient stable and discharged home Lab Data : 04/14/22 07:16 04/14/22 07:16 Radiology Impressions Chest X-Ray 04/14/22 06:58 IMPRESSION: Large ovoid opacity at the left base that could reflect a mass or consolidation. There is mild patchy adjacent opacity. Recommend CT chest with contrast to further assess. Chest CTA 04/14/22 07:56 IMPRESSION: 1. No pulmonary embolus. 2. Peribronchial wall thickening; query viral infection/bronchitis, chronic bronchitis and/or asthma. 3. Solid pulmonary nodules are unchanged measuring up to 5.7 mm. Fleischner society guidelines have been satisfied. No further follow-up is required. 4. Approximately unchanged mediastinal, bilateral hilar and periportal lymphadenopathy. 5. Worsening bilateral axillary lymphadenopathy. 6. Small hiatal hernia. 7. Colonic diverticulosis. Laboratory Results WBC 12.5 10^3/uL (4.0-10.0) H 04/14/22 07:16 RBC 4.13 10^6/uL (4.1-5.3) 04/14/22 07:16 Hgb 11.1 g/dL (11.5-15.3) L 04/14/22 07:16 Hct 34.6 % (37.0-47.0) L 04/14/22 07:16 MCV 83.8 fl (81-99) 04/14/22 07:16 MCH 26.9 pg (28.0-34.0) L 04/14/22 07:16 MCHC 32.1 g/dL (30.0-36.0) 04/14/22 07:16 RDW 15.3 % (12.1-15.1) H 04/14/22 07:16 Plt Count 420 10^3/cmm (130-400) H 04/14/22 07:16 MPV 9.8 fL (7.4-10.4) 04/14/22 07:16 Neut % (Auto) 73.6 % 04/14/22 07:16 Lymph % (Auto) 17.2 % 04/14/22 07:16 [place] % (Auto) 6.8 % 04/14/22 07:16 Eos % (Auto) 1.7 % 04/14/22 07:16 Baso % (Auto) 0.3 % 04/14/22 07:16 Neut # (Auto) 9.18 10^3/uL (1.8-7.7) H 04/14/22 07:16 Lymph # (Auto) 2.2 10^3/uL (0.8-4.8) 04/14/22 07:16 [place] # (Auto) 0.9 10^3/uL (0.2-0.9) 04/14/22 07:16 Eos # (Auto) 0.2 10^3/uL (0.0-0.8) 04/14/22 07:16 Baso # (Auto) 0.0 10^3/uL (0.0-0.1) 04/14/22 07:16 Nucleated RBC % (auto) 0 % 04/14/22 07:16 Nucleated RBCs # 0.0 /100WBC 04/14/22 07:16 PT 12.30 SECONDS (12.1-14.9) 04/14/22 07:16 INR 0.89 (0.8-1.2) 04/14/22 07:16 APTT 25.0 SECONDS (23.9-36.7) 04/14/22 07:16 D-Dimer 1.09 ug/mIFEU (0-0.59) H 04/14/22 07:16 Sodium 137 mmol/L (136-145) 04/14/22 07:16 Potassium 3.8 mmol/L (3.5-5.1) 04/14/22 07:16 Chloride 107 mmol/L (98-107) 04/14/22 07:16 Carbon Dioxide 19 mmol/L (22-29) L 04/14/22 07:16 Anion Gap 14.8 (5-19) 04/14/22 07:16 BUN 10 mg/dL (6-20) 04/14/22 07:16 Creatinine 0.8 mg/dL (0.5-0.9) 04/14/22 07:16 GFR Calculation 73.9 mL/min (90-130) L 04/14/22 07:16 Glucose 105 mg/dL (65-115) 04/14/22 07:16 Calculated Osmolality 283 mOsm/kg (285-295) L 04/14/22 07:16 Calcium 9.0 mg/dL (8.5-10.5) 04/14/22 07:16 Total Bilirubin 0.2 mg/dL (0.15-1.2) 04/14/22 07:16 AST 15 U/L (0-32) 04/14/22 07:16 ALT 12 U/L (0-33) 04/14/22 07:16 Alkaline Phosphatase 74 U/L (35-105) 04/14/22 07:16 Troponin T Baseline 6 ng/L (0-10) 04/14/22 07:16 Troponin T 120 Minute 6.00 ng/L (0-10) 04/14/22 09:15 Delta Troponin T 0 ABS# (0-10) 04/14/22 09:15 Total Protein 7.1 g/dL (6.6-8.7) 04/14/22 07:16 Albumin 3.9 g/dL (3.5-5.2) 04/14/22 07:16 Globulin 3.2 g/dL (1.3-4.6) 04/14/22 07:16 Lipase 26 U/L (13-60) 04/14/22 07:16 Discharge Plan Discharge Patient Disposition: Home Clinical Impression: Bronchitis, Pneumonia Condition: Stable Prescriptions: New prednisone 20 mg tablet 20 mg PO BID 3 Days Qty: 6 0RF azithromycin 250 mg tablet See Rx Instructions .ROUTE .COMPLEX Qty: 6 0RF Rx Instructions: For 250 mg dose pack: take 500 mg today (day 1), then 250 mg for 4 days (days 2-5) No Action escitalopram oxalate 10 mg tablet 10 mg PO QAM losartan 100 mg tablet 100 mg PO QAM vitamin E 200 unit capsule 400 unit PO QAM aspirin 81 mg tablet,delayed release (DR/EC) 81 mg PO QAM mupirocin 2 % ointment 1 applic topical BID 14 Days Qty: 22 2RF doxycycline hyclate 100 mg capsule 100 mg PO BID 7 Days Qty: 14 0RF acetaminophen-codeine 300-30 mg tablet 1 tab PO Q6H PRN (Reason: foot surgery) 7 Days Qty: 20 0RF multivitamin Tablet 1 tab PO DAILY Vitamin B-12 1,000 mcg Tablet Extended Release 1,000 mcg PO QAM fexofenadine 180 mg Tablet 180 mg PO QAM Synthroid 112 mcg tablet 112 mcg PO QAM Vitamin D3 125 mcg (5,000 unit) Tablet 125 mcg PO DAILY cranberry 1 tab PO QAM Discharge Orders: Discharge ED (Routine); Ordered 04/14/22 Ordered By: Kory Thorne Referrals: Ambriz,Juana L, PA [Primary Care Provider] - Discharge Diet: Usual diet Discharge Activity: Resume usual activity Patient Instructions: Acute Bronchitis (ED), Pneumonia (ED), Opioid Safety, Pain Management Activity Restrictions/Additional Instructions: Follow-up with your primary care provider in 3 to 4 days for recheck of your symptoms Coding Level of Care Code ED Fire Patroller for [place] Fwd Exam Comprehensive
--- NOTE | 2022-04-14 07:30 | PC.NURSE ---
PT PLACED ON CONTINUOUS NIBP, PO2, AND CM
[2022-04-14 07:34] LABS: Basophils % 0.3 %; Eosinophils # 0.2 10^3/uL (0.0-0.8); Eosinophils % 1.7 %; Hematocrit 34.6 % (37.0-47.0); Hemoglobin 11.1 g/dL (11.5-15.3); Lymphocytes # 2.2 10^3/uL (0.8-4.8); Lymphocytes % 17.2 %; Mean Corpuscular HGB Conc 32.1 g/dL (30.0-36.0); Mean Corpuscular Hemoglobin 26.9 pg (28.0-34.0); Mean Corpuscular Volume 83.8 fl (81-99); Mean Platelet Volume 9.8 fL (7.4-10.4); Monocytes # 0.9 10^3/uL (0.2-0.9); Monocytes % 6.8 %; Neutrophils # 9.18 10^3/uL (1.8-7.7); Neutrophils % 73.6 %; Nucleated Red Blood Cells % 0 %; Platelet Count 420 10^3/cmm (130-400); Red Blood Count 4.13 10^6/uL (4.1-5.3); Red Cell Distribution Width 15.3 % (12.1-15.1); White Blood Count 12.5 10^3/uL (4.0-10.0)
[2022-04-14 07:44] LABS: INR 0.89 (0.8-1.2)
[2022-04-14 07:47] LABS: D Dimer 1.09 ug/mIFEU (0-0.59)
[2022-04-14 07:51] LABS: Alanine Aminotransferase 12 U/L (0-33); Albumin Level 3.9 g/dL (3.5-5.2); Alkaline Phosphatase 74 U/L (35-105); Aspartate Amino Transferase 15 U/L (0-32); Blood Urea Nitrogen 10 mg/dL (6-20); Carbon Dioxide 19 mmol/L (22-29); Chloride 107 mmol/L (98-107); Globulin 3.2 g/dL (1.3-4.6); Glomerular Filtration Rate 73.9 mL/min (90-130); Glucose 105 mg/dL (65-115); Lipase 26 U/L (13-60); Osmolality Calculated 283 mOsm/kg (285-295); Sodium 137 mmol/L (136-145); Total Bilirubin 0.2 mg/dL (0.15-1.2); Total Protein 7.1 g/dL (6.6-8.7)
[2022-04-14 07:52] LABS: Troponin(5th) Baseline 6 ng/L (0-10)
[2022-04-14 07:53] LABS: Anion Gap 14.8 (5-19); Potassium 3.8 mmol/L (3.5-5.1)
--- NOTE | 2022-04-14 07:56 | CTR_ITS ---
PROCEDURE INFORMATION: Exam: CTA Chest With Contrast Exam date and time: 04/14/2022 9:21 AM Age: 56 years old Clinical indication: Chest pain/pressure. TECHNIQUE: Imaging protocol: Computed tomographic angiography of the chest with contrast. 3D rendering (Not supervised by radiologist): MIP and/or 3D reconstructed images were created by the technologist. Radiation optimization: All CT scans at this facility use at least one of these dose optimization techniques: automated exposure control; mA and/or kV adjustment per patient size (includes targeted exams where dose is matched to clinical indication); or iterative reconstruction. Contrast material: OMNIN 350; Contrast volume: 72 ml; Contrast route: INTRAVENOUS (IV); COMPARISON: CT angio chest PE protcl [id number] 11/28/2020 10:13 AM RADIATION DOSE METRICS: Total DLP (mGy-cm): 386.61 FINDINGS: Pulmonary arteries: No pulmonary embolus. Aorta: No thoracic aortic aneurysm. Lungs: There is peribronchial wall thickening bilaterally. There are foci of subsegmental atelectasis or scarring bilaterally. No pulmonary consolidation. A pulmonary micronodule in the right middle lobe measures 4.8 mm (image 265). A pulmonary nodule in the left lower lobe is unchanged measuring 5.7 mm (image 259). A pulmonary micronodule in the left lower lobe measures 3.9 mm; unchanged (image 305). Pleural spaces: No pleural effusion. No pneumothorax. Heart: No pericardial effusion. Mild coronary arterial calcifications are seen. Lymph nodes: There is worsening bilateral axillary lymphadenopathy. A left axillary lymph node measures 1.2 x 1.4 cm. A right axillary lymph node measures 1.1 x 1.5 cm. A right paratracheal lymph node is approximately unchanged measuring 1.0 x 2.1 cm. A right hilar lymph node is approximately unchanged measuring 1.1 x 1.8 cm. A left hilar lymph node is approximately unchanged measuring 1.3 x 1.0 cm. Diaphragm: Small hiatal hernia. Gallbladder and bile ducts: The gallbladder has been removed. A periportal lymph node measures 1.1 x 1.7 cm. Occasional colonic diverticula. Bones/joints: No acute fracture is identified. CT/CT angio chest PE protcl [id number] IMPRESSION: 1. No pulmonary embolus. 2. Peribronchial wall thickening; query viral infection/bronchitis, chronic bronchitis and/or asthma. 3. Solid pulmonary nodules are unchanged measuring up to 5.7 mm. Fleischner society guidelines have been satisfied. No further follow-up is required. 4. Approximately unchanged mediastinal, bilateral hilar and periportal lymphadenopathy. 5. Worsening bilateral axillary lymphadenopathy. 6. Small hiatal hernia. 7. Colonic diverticulosis.
[2022-04-14] MEDS: iohexol 350 mg/mL 500 mL Btl (per mL) IV (08:36)
[2022-04-14] MEDS: ketorolac 30 mg/mL INJ 15 MG IVP (08:53)
--- NOTE | 2022-04-14 08:58 | ECG_ITS ---
[facility] Test Date: 2022-04-14 Pat Name: Lisa Hammer Department: Room: Gender: Female Medical Imaging Specialist: : 1965 Requested By: Kory Thorne Order Number: [id number] Rosa MD: Nessa Goodwin M.D. Measurements Intervals Olga Rate: 74 P: 48 SC: 146 QRS: -27 QRSD: 96 T: 5 QT: 392 QTc: 436 Interpretive Statements SINUS RHYTHM BORDERLINE LEFT AXIS DEVIATION [QRS AXIS < -20] LOW QRS VOLTAGE IN PRECORDIAL LEADS [QRS DEFLECTION < 1.0 mV IN CHEST LEADS] Compared to ECG 04/14/2022 06:59:51 Low QRS voltage now present Electronically Signed On 04-14-2022 9:46:35 HOSPITAL FOOD SERVICE WORKER by Nessa Goodwin M.D. [id number]
[2022-04-14 10:02] LABS: Troponin 5 2HR Delta 0 ABS# (0-10)
== END 2022-04-14 10:24 | disposition home or self-care (01) ==
PROVIDERS: Emergency Provider Student in an Organized Health Care Education/Training Program; PCP Physician Assistant
DX: J40 Bronchitis, not specified as acute or chronic (principal); J18.9 Pneumonia, unspecified organism; Z87.891 Personal history of nicotine dependence; Z79.82 Long term (current) use of aspirin
CPT/HCPCS: 71045; 71275; 80053; 83690; 84484; 85025; 85378; 85610; 85730; 93005; 96374; 99285; J1885; Q9967

== ENCOUNTER 2022-08-26 10:11 | Outpatient (CLI) | payer MEDICAID, SELFPAY ==
--- NOTE | 2022-08-26 10:18 | CT_ITS ---
WS: [id number] LDCT LUNG CANCER SCREENING TECHNIQUE: Noncontrast CT of the chest with coronal and sagittal reformatted images. CLINICAL INFORMATION: HISTORY OF TOBACCO USE COMPARISON: CTA chest April 14, 2022 DLP: 82.07 mGy.cm DIvol: Mean CTDIvol: 1.60 (mGy) All CT scans at [facility] use at least one of these dose optimization techniques: automat ed exposure control; mA and/or kV adjustment per patient size (includes targeted exams where dose is matched to clinical indication); or iterative reconstruction. FINDINGS: A few tiny subcentimeter pulmonary nodules the largest measuring 6 mm LEFT lower lobe unchanged. Stab le 5 mm nodule RIGHT upper lobe anteriorly. Numerous prominent anterior mediastinal and peribronchial lymph nodes are unchanged. Prominent subcarinal lymph nodes are unchanged. Numerous prominent bilateral axillary lymph nodes are stable. Adrenal glands are normal. Cholecystect violet clips. Small esophageal hiatal hernia. Hypertrophic changes thoracic spine. IMPRESSION: CT/CT lung screening [id number] LUNG-RADS: 2-Benign Appearance or Behavior FOLLOW UP: 12 Month: Continue annual screening with LDCT
== END 2022-08-26 10:12 | disposition home or self-care (01) ==
LOC: RAD 10:16
PROVIDERS: PCP Physician Assistant; Visit Provider Physician Assistant
DX: Z12.2 Encounter for screening for malignant neoplasm of respiratory organs (principal); Z87.891 Personal history of nicotine dependence
CPT/HCPCS: 71271

== ENCOUNTER 2023-08-28 13:18 | Outpatient (CLI) | payer MEDICAID, SELFPAY ==
--- NOTE | 2023-08-28 13:24 | CT_ITS ---
WS: [id number] LDCT LUNG CANCER SCREENING TECHNIQUE: Noncontrast CT of the chest with coronal and sagittal reformatted images. CLINICAL INFORMATION: HX OF TOBACCO USE COMPARISON: CT 08/26/2022 DLP: 67.00 mGy.cm DIvol: Mean CTDIvol: 1.40 (mGy) All CT scans at [facility] use at least one of these dose optimization techniques: automat ed exposure control; mA and/or kV adjustment per patient size (includes targeted exams where dose is matched to clinical indication); or iterative reconstruction. FINDINGS: Slightly spiculated irregular lesion in the RIGHT middle lobe is new compared to previous. This measures approximately 1.6 cm. This is indeterminate neoplasm not excluded. Recommend further evaluation with PET/CT. A few subcentimeter nodules the largest measuring 6 mm LEFT lower lobe unchanged. Stable 5 mm nodule RIGHT upper lobe anteriorly. Additional small subpleural and pleural-based nodules in both lungs are unchanged. Prominent intermediastinal and parabronchial lymph nodes are stable. Stable subcarinal lymph nodes. Adrenal glands are normal. Cholecystectomy clips. Hypertrophic changes thoracic spine. Small esophage al hiatal hernia. Enlarged bilateral axillary lymph nodes are unchanged compared to previous these ar e similar in appearance dating back to 04/14/2022 and 12/28/2020. IMPRESSION: New slightly spiculated irregular lesion in the RIGHT middle lobe measuring 1.6 cm is ind eterminate. Neoplasm not excluded and recommend further evaluation with PET/CT. CT/CT lung screening [id number] LUNG-RADS: 4B-Suspicious FOLLOW UP: PET/CT recommended
== END 2023-08-28 13:19 | disposition home or self-care (01) ==
LOC: RAD 13:18
PROVIDERS: PCP Physician Assistant; Visit Provider Physician Assistant
DX: Z12.2 Encounter for screening for malignant neoplasm of respiratory organs (principal); Z87.891 Personal history of nicotine dependence; R91.8 Other nonspecific abnormal finding of lung field
CPT/HCPCS: 71271

== ENCOUNTER 2023-09-23 10:36 | Outpatient (CLI) | payer MEDICAID, SELFPAY ==
--- NOTE | 2023-09-23 16:06 | PETR_ITS ---
PROCEDURE INFORMATION: Exam: PET/CT Skull Base to Mid-thigh Exam date and time: 09/23/2023 11:25 AM Age: 58 years old Clinical indication: Solitary pulmonary nodule; New 1.6 cm slightly spiculated irregular lesion in the right middle lobe on lung cancer screening CT chest on 08/28/2023. LABS AND CLINICAL REPORTS: Glucose: 87 mg/dl Treatment strategy for malignancy (PET staging): Initial Staging (PI) TECHNIQUE: Imaging protocol: Following at least four-hour fasting and following the injection of radiopharmaceutical, low dose CT images were obtained. Then, PET images were obtained. Attenuation corrected images were constructed using the CT scan. Fused images of PET and CT were reviewed. The standardized uptake values (SUV) reported below are maximum values within a region of interest, expressed in gm/ml. Exam includes orbital meatal line to mid-thigh. Radiopharmaceutical: 12.37 mCi F-18 FDG (Fluorodeoxyglucose), IV. Time of imaging post radiopharmaceutical administration: 1 hour Injection site: Right antecubital vein COMPARISON: CT chest lung cancer screening 08/28/2023 and 08/26/2022, CT angio chest 04/14/2022, CT chest abdomen pelvis 12/28/2020 FINDINGS: Brain: Visualized brain has normal physiologic uptake. Pharynx: No abnormal uptake. Larynx: No abnormal uptake. Lungs, pleura and trachea: No abnormal uptake. About 1.5 cm focus of reticular/ground-glass opacity with no obvious solid component in the right middle lobe on axial image 83 corresponds to the finding of question on prior CT chest lung cancer screening on 08/28/2023 with no abnormal uptake (0.9 SUV). Mild dependent atelectasis present in the left lower lobe. Heart: Normal physiologic uptake. There is no cardiomegaly. No coronary artery calcification is visualized. There is no pericardial effusion. Mediastinal space: No abnormal uptake. There is a small hiatal hernia. Liver: No abnormal uptake. Gallbladder and bile ducts: No abnormal uptake. Status post cholecystectomy. Pancreas: No abnormal uptake. Stable diffuse fatty changes. Spleen: No abnormal uptake. No splenomegaly. Adrenal glands: No abnormal uptake. No nodules. Kidneys and ureters: No abnormal uptake. No hydronephrosis. Stable 1.8 cm nodule exophytic from the lower pole of the right kidney with nonspecific soft tissue density is compatible with benign finding, likely hemorrhagic cyst. Stomach and bowel: Intense uptake in the collapsed rectosigmoid and descending colon, and within the left and central segment of the transverse colon suggestive of benign finding. There is mild diverticulosis in the sigmoid colon. Intraperitoneal and retroperitoneal spaces: No abnormal uptake. No ascites. Bladder: Normal physiologic uptake. Reproductive: No abnormal uptake. Vasculature: No abnormal uptake. Lymph nodes: No FDG avid lymphadenopathy in the head, neck, chest, abdomen, pelvis, and extremities. Mildly prominent in size mediastinal lymph nodes with no abnormal uptake are slightly smaller in comparison with prior exam on 04/14/2022 suggestive of benign nodes. For example, the right subcarinal lymph node decreased in anterior-posterior diameter from 1.9 cm to 1.5 cm. Borderline in size left retrocrural, retroperitoneal and bilateral pelvic lymph nodes are not FDG avid suggestive of benign finding. Bones/joints: No abnormal uptake in the visualized axial and appendicular skeleton. Soft tissues: No abnormal uptake in the visualized head, neck, chest, abdomen, pelvis, and extremities. PET/PET [facility] INITIAL [id number] IMPRESSION: Right middle lobe irregular shaped opacity with no obvious solid component on the current exam is not FDG avid. No FDG avid lymphadenopathy or other evidence of malignancy. Intense uptake in the left colon suggestive of benign finding.
== END 2023-09-23 10:37 | disposition home or self-care (01) ==
LOC: RAD 10:37
PROVIDERS: PCP Physician Assistant; Visit Provider Physician Assistant
DX: R91.1 Solitary pulmonary nodule (principal)
CPT/HCPCS: 78815; A9552

== ENCOUNTER 2023-12-10 11:12 | Outpatient (CLI) | payer MEDICAID, SELFPAY ==
--- NOTE | 2023-12-10 11:16 | MM_ITS ---
WS: [id number] BILATERAL 3D TOMOSYNTHESIS DIGITAL SCREENING MAMMOGRAPHY WITH CAD CLINICAL INFORMATION: SCREENING HISTORY: Screening mammogram. No current complaints. COMPARISON: 2021 TECHNIQUE: Bilateral CC and MLO views. FINDINGS: The breasts are composed of heterogeneous fibroglandular density tissue, which can limit the detectio n of small underlying mass lesions. No suspicious mass, asymmetry, calcifications, or architectural d istortion. No evidence of malignancy. Few incidental punctate calcifications. MM/[place] [id number] IMPRESSION: BI-RADS: 2-Benign FOLLOW UP: 1 Year Follow-up Recommend return to annual screening mammography.
== END 2023-12-10 11:13 | disposition home or self-care (01) ==
LOC: RAD 11:12
PROVIDERS: PCP Physician Assistant; Visit Provider Physician Assistant
DX: Z12.31 Encounter for screening mammogram for malignant neoplasm of breast (principal); R92.333 Mammographic heterogeneous density, bilateral breasts; R92.323 Mammographic fibroglandular density, bilateral breasts; R92.1 Mammographic calcification found on diagnostic imaging of breast
CPT/HCPCS: 77063; 77067

== ENCOUNTER → 2024-02-11 14:25 | Outpatient (BNVA) | payer MEDICAID, SELFPAY | PROVIDERS: PCP Physician Assistant; Visit Provider Internal Medicine Rheumatology | DX: Z11.1 Encounter for screening for respiratory tuberculosis (principal); Z79.899 Other long term (current) drug therapy; Z11.59 Encounter for screening for other viral diseases; M05.79 Rheumatoid arthritis with rheumatoid factor of multiple sites without organ or systems involvement; Z71.85 Encounter for immunization safety counseling; R76.8 Other specified abnormal immunological findings in serum | CPT/HCPCS: 36415; 80076; 82565; 85025; 85651; 86140; 86480; 86704; 86803; 87340 ==

== ENCOUNTER 2024-03-16 15:12 | Outpatient (CLI) | payer MEDICAID, SELFPAY ==
[2024-03-16 16:10] LABS: Basophils # 0.1 10^3/uL (0.0-0.1); Basophils % 0.8 %; Eosinophils # 0.2 10^3/uL (0.0-0.8); Hematocrit 35.7 % (36-47); Lymphocytes # 2.6 10^3/uL (0.8-4.8); Mean Corpuscular HGB Conc 32.2 g/dL (30-55); Mean Corpuscular Hemoglobin 27.3 pg (27-33); Mean Corpuscular Volume 84.6 fl (85-98); Mean Platelet Volume 9.6 fL (7.4-10.4); Monocytes # 0.5 10^3/uL (0.2-0.9); Monocytes % 7.3 %; Neutrophils # 3.69 10^3/uL (1.8-7.7); Neutrophils % 52.2 %; Nucleated Red Blood Cells % 0 %; Platelet Count 399 10^3/cmm (157-399); Red Blood Count 4.22 10^6/uL (3.85-5.65); Red Cell Distribution Width 17.2 % (12.1-15.1); White Blood Count 7.08 10^3/uL (3.29-11.43)
[2024-03-16 16:11] LABS: Erythrocyte Sedimentation Rate 13 mm/hr (0-15)
[2024-03-16 16:20] LABS: Alanine Aminotransferase 14 U/L (0-33); Albumin Level 3.7 g/dL (3.5-5.2); Alkaline Phosphatase 72 U/L (35-105); Aspartate Amino Transferase 17 U/L (0-32); C Reactive Protein 4.6 mg/L (0.0-4.9); Globulin 3.8 g/dL (1.3-4.6); Glomerular Filtration Rate 73.4 mL/min (90-130); Total Bilirubin 0.2 mg/dL (0.15-1.2); Total Protein 7.5 g/dL (6.6-8.7)
== END 2024-03-16 15:13 | disposition home or self-care (01) ==
LOC: LAB 15:14
PROVIDERS: PCP Physician Assistant; Visit Provider Internal Medicine Rheumatology
DX: Z79.899 Other long term (current) drug therapy (principal)
CPT/HCPCS: 36415; 80076; 82565; 85025; 85651; 86140

== ENCOUNTER 2024-06-23 12:03 | Outpatient (CLI) | payer MEDICAID, SELFPAY ==
[2024-06-23 12:38] LABS: Basophils % 0.6 %; Eosinophils # 0.4 10^3/uL (0.0-0.8); Eosinophils % 5.7 %; Hematocrit 37.5 % (36-47); Lymphocytes # 1.9 10^3/uL (0.8-4.8); Lymphocytes % 28.8 %; Mean Corpuscular HGB Conc 31.5 g/dL (30-55); Mean Corpuscular Hemoglobin 27.8 pg (27-33); Mean Corpuscular Volume 88.2 fl (85-98); Mean Platelet Volume 9.4 fL (7.4-10.4); Monocytes # 0.5 10^3/uL (0.2-0.9); Monocytes % 8.4 %; Neutrophils # 3.62 10^3/uL (1.8-7.7); Neutrophils % 56.2 %; Nucleated Red Blood Cells % 0 %; Platelet Count 480 10^3/cmm (157-399); Red Blood Count 4.25 10^6/uL (3.85-5.65); Red Cell Distribution Width 16.6 % (12.1-15.1); White Blood Count 6.45 10^3/uL (3.29-11.43)
[2024-06-23 12:42] LABS: Erythrocyte Sedimentation Rate 18 mm/hr (0-15)
[2024-06-23 12:54] LABS: Alanine Aminotransferase 12 U/L (0-33); Albumin Level 3.8 g/dL (3.5-5.2); Alkaline Phosphatase 90 U/L (35-105); Aspartate Amino Transferase 16 U/L (0-32); C Reactive Protein 6.8 mg/L (0.0-4.9); Globulin 3.8 g/dL (1.3-4.6); Glomerular Filtration Rate 73.2 mL/min (90-130); Total Bilirubin 0.2 mg/dL (0.15-1.2); Total Protein 7.6 g/dL (6.6-8.7)
[2024-06-23 13:10] LABS: Alanine Aminotransferase 12 U/L (0-33); Albumin Level 3.8 g/dL (3.5-5.2); Alkaline Phosphatase 87 U/L (35-105); Anion Gap 11.5 (5-19); Aspartate Amino Transferase 16 U/L (0-32); Blood Urea Nitrogen 9 mg/dL (8-23); Calcium 8.6 mg/dL (8.5-10.5); Carbon Dioxide 25 mmol/L (22-29); Chloride 107 mmol/L (98-107); Chol HDL Ratio 4.81 mg/dL (0.0-4.40); Cholesterol 173 mg/dL (0-200); Globulin 3.8 g/dL (1.3-4.6); Glomerular Filtration Rate 73.2 mL/min (90-130); Glucose 108 mg/dL (65-115); HDL Cholesterol 36 mg/dL (60-100); LDL Cholesterol Calculated 101 mg/dL (50-129); LDL HDL Ratio 2.81 RATIO (0.00-3.22); Osmolality Calculated 287 mOsm/kg (285-295); Potassium 4.5 mmol/L (3.5-5.1); Sodium 139 mmol/L (136-145); Thyroid Stimulating Hormone 0.97 uIU/mL (0.27-4.20); Total Bilirubin 0.2 mg/dL (0.15-1.2); Total Protein 7.6 g/dL (6.6-8.7); Triglycerides 180 mg/dL (0-150)
== END 2024-06-23 12:04 | disposition home or self-care (01) ==
LOC: LAB 12:08
PROVIDERS: PCP Physician Assistant; Visit Provider Internal Medicine Rheumatology
DX: Z79.899 Other long term (current) drug therapy (principal)
CPT/HCPCS: 36415; 80053; 80061; 80076; 82565; 84443; 85025; 85651; 86140

== ENCOUNTER 2024-09-17 11:47 | Outpatient (CLI) | payer MEDICAID, SELFPAY ==
[2024-09-17 12:17] LABS: Basophils % 0.4 %; Eosinophils # 0.2 10^3/uL (0.0-0.8); Eosinophils % 2.4 %; Hematocrit 36.8 % (36-47); Lymphocytes # 1.5 10^3/uL (0.8-4.8); Lymphocytes % 20.4 %; Mean Corpuscular HGB Conc 32.1 g/dL (30-55); Mean Corpuscular Volume 87.2 fl (85-98); Mean Platelet Volume 9.1 fL (7.4-10.4); Monocytes # 0.5 10^3/uL (0.2-0.9); Monocytes % 7.1 %; Neutrophils # 5.21 10^3/uL (1.8-7.7); Neutrophils % 69.6 %; Nucleated Red Blood Cells % 0 %; Platelet Count 394 10^3/cmm (157-399); Red Blood Count 4.22 10^6/uL (3.85-5.65); Red Cell Distribution Width 16.4 % (12.1-15.1); White Blood Count 7.49 10^3/uL (3.29-11.43)
[2024-09-17 12:28] LABS: Erythrocyte Sedimentation Rate 15 mm/hr (0-15)
[2024-09-17 12:34] LABS: Alanine Aminotransferase 13 U/L (0-33); Albumin Level 3.9 g/dL (3.5-5.2); Alkaline Phosphatase 74 U/L (35-105); Aspartate Amino Transferase 18 U/L (0-32); C Reactive Protein 7.2 mg/L (0.0-4.9); Globulin 3.9 g/dL (1.3-4.6); Glomerular Filtration Rate 73.2 mL/min (90-130); Total Bilirubin 0.3 mg/dL (0.15-1.2); Total Protein 7.8 g/dL (6.6-8.7)
== END 2024-09-17 11:48 | disposition home or self-care (01) ==
PROVIDERS: PCP Physician Assistant; Visit Provider Internal Medicine Rheumatology
DX: M05.79 Rheumatoid arthritis with rheumatoid factor of multiple sites without organ or systems involvement (principal); Z79.899 Other long term (current) drug therapy
CPT/HCPCS: 80076; 82565; 85025; 85651; 86140

== ENCOUNTER 2024-12-06 14:00 | Outpatient (CLI) | payer MEDICAID, SELFPAY ==
--- NOTE | 2024-12-06 14:10 | CT_ITS ---
WS: [id number] LDCT LUNG CANCER SCREENING TECHNIQUE: Noncontrast CT of the chest with coronal and sagittal reformatted images. CLINICAL INFORMATION: HX OF TOBACCO USE COMPARISON: 2023 DLP: 72.01 mGy.cm DIvol: Mean CTDIvol: 1.50 (mGy) All CT scans at [facility] use at least one of these dose optimization techniques: automated exposure control; mA and/or kV adjustment per patient size (includes targeted exams where dose is matched to clinical indication); or iterative reconstruction. FINDINGS: Previously described spiculated opacity in RIGHT middle lobe was not FDG-avid on the prior PET/CT. This has essentially resolved today and is likely infectious or inflammatory. No other new suspicious pulmonary parenchymal abnormalities. Subsegmental atelectasis in the lingula. A few subcentimeter nodules the largest measuring 6 mm LEFT lower lobe unchanged. Stable 5 mm nodule RIGHT upper lobe anteriorly. Additional small subpleural and pleural-based nodules in both lungs are unchanged. Stable slightly prominent anterior mediastinal and parabronchial lymph nodes are stable. Stable subcarinal lymph nodes. Adrenal glands are normal. Cholecystectomy clips. Hypertrophic changes thoracic spine. Small esophageal hiatal hernia. Enlarged bilateral axillary lymph nodes are unchanged. These are similar in appearance dating back to 04/14/2022 and 12/28/[address]/CT lung screening [id number] IMPRESSION: LUNG-RADS: 2-Benign Appearance or Behavior FOLLOW UP: 12 Month: Continue annual screening with LDCT
== END 2024-12-06 14:01 | disposition home or self-care (01) ==
LOC: RAD 14:01
PROVIDERS: PCP Physician Assistant; Visit Provider Physician Assistant
DX: Z12.2 Encounter for screening for malignant neoplasm of respiratory organs (principal); Z87.891 Personal history of nicotine dependence; J98.11 Atelectasis; R91.8 Other nonspecific abnormal finding of lung field; R59.0 Localized enlarged lymph nodes; Z90.49 Acquired absence of other specified parts of digestive tract; M89.38 Hypertrophy of bone, other site; K44.9 Diaphragmatic hernia without obstruction or gangrene
CPT/HCPCS: 71271

== ENCOUNTER 2024-12-20 09:56 | Outpatient (CLI) | payer MEDICAID, SELFPAY ==
--- NOTE | 2024-12-20 09:59 | MM_ITS ---
WS: [id number] BILATERAL SCREENING DIGITAL TOMOSYNTHESIS MAMMOGRAM WITH CAD HISTORY: SCREENING COMPARISON: 12/10/2023, 03/27/2022 Bilateral CC and MLO views with tomosynthesis and synthetic mammography submitted. Computer aided detection analyzed. Breast composition: The breasts are heterogeneously dense, which may obscure small masses. No suspicious masses, microcalcifications or architectural distortion. MM/MM scr BI tomosynthesis [id number] IMPRESSION: BI-RADS: 1 - Negative FOLLOW UP: 1 Year Follow-up
--- NOTE | 2024-12-20 12:30 | XR_ITS ---
WS: [id number] SCREENING DEXA SCAN [place] CLINICAL INFORMATION: ASYMPTOMATIC MENOPAUSAL STATE COMPARISON: None. FINDINGS: The L1-L4 bone mineral density measures 1.557 g/cm2. This corresponds to a T score score of 3.1 and Z score of 3.3. Left femoral neck bone mineral density measures 1.048 g/cm2. This corresponds to a T score of 0.3 and Z score of 0.5. Right femoral neck bone mineral density measures 1.040 g/cm2. This corresponds to a T score 0.3of and Z score of 0.5. Mean femoral neck bone mineral density measures 1.044 g/cm2. This corresponds to a T score of 0.3 and Z score of 0.5. XR/XR DEXA axial skeleton* [id number] IMPRESSION: Normal bone mineralization. Patient's FRAX calculated 10 year probability for major osteoporotic fracture i s 8.2% and osteoporotic hip fracture is 0.3%.
== END 2024-12-20 09:57 | disposition home or self-care (01) ==
LOC: RAD 09:56
PROVIDERS: PCP Physician Assistant; Visit Provider Physician Assistant
DX: Z12.31 Encounter for screening mammogram for malignant neoplasm of breast (principal); Z78.0 Asymptomatic menopausal state; Z13.820 Encounter for screening for osteoporosis
CPT/HCPCS: 77063; 77067; 77080

== ENCOUNTER → 2025-01-11 14:35 | Outpatient (BNVA) | payer MEDICAID, SELFPAY | PROVIDERS: PCP Physician Assistant; Visit Provider Internal Medicine Rheumatology | DX: Z79.899 Other long term (current) drug therapy (principal) | CPT/HCPCS: 36415; 80076; 82306; 82565; 85025; 85651; 86140 ==

== ENCOUNTER 2025-02-25 08:29 | Outpatient (CLI) | payer MEDICAID, SELFPAY ==
[2025-02-25 08:49] LABS: Hematocrit 37.3 % (36-47); Hemoglobin 12.00 g/dL (11.27-16.99); Mean Corpuscular HGB Conc 32.2 g/dL (30-55); Mean Corpuscular Hemoglobin 27.5 pg (27-33); Mean Corpuscular Volume 85.4 fl (85-98); Nucleated Red Blood Cells % 0 %; Platelet Count 416 10^3/cmm (157-399); Red Blood Count 4.37 10^6/uL (3.85-5.65); White Blood Count 5.84 10^3/uL (3.29-11.43)
[2025-02-25 09:10] LABS: Alanine Aminotransferase 17 U/L (0-33); Albumin Level 4.0 g/dL (3.5-5.2); Alkaline Phosphatase 87 U/L (35-105); Aspartate Amino Transferase 22 U/L (0-32); Globulin 4.1 g/dL (1.3-4.6); Total Protein 8.1 g/dL (6.6-8.7)
== END 2025-02-25 08:30 | disposition home or self-care (01) ==
LOC: LAB 08:31
PROVIDERS: PCP Physician Assistant; Visit Provider Internal Medicine Rheumatology
DX: Z79.899 Other long term (current) drug therapy (principal)
CPT/HCPCS: 36415; 80076; 82565; 85025; 85651; 86140

== ENCOUNTER → 2025-05-24 15:03 | Outpatient (BNVA) | payer MEDICAID, SELFPAY | PROVIDERS: PCP Physician Assistant; Visit Provider Internal Medicine Rheumatology | DX: M05.79 Rheumatoid arthritis with rheumatoid factor of multiple sites without organ or systems involvement (principal); Z79.899 Other long term (current) drug therapy; R76.89 Other specified abnormal immunological findings in serum | CPT/HCPCS: 36415; 80076; 82565; 85025; 85651; 86140; 86480 ==